=== PATIENT | male | born 1950 | race Caucasian/White ===

== ENCOUNTER → 2020-07-12 | Outpatient (CLI) | payer MEDICARE ==
[~2020-07-12] MED LIST: ASCO500T17 PO; ASPI-586 PO; ATOR40TA70 PO; ENAL20TA16 PO; MULT-178 PO
--- NOTE | 2020-07-12 09:58 | Diagnostic Imaging Report ---
PROCEDURE: MRI lumbar spine. TECHNIQUE: Multiplanar, multisequence MRI of the lumbar spine was performed without contrast. INDICATION: 1 week history of back pain with no known injury. FINDINGS: There is heterogeneity of the marrow signal intensity, suggestive of areas of fatty replacement of red marrow. No geographic marrow lesion or edema. No fracture. The lower thoracic cord, conus, and nerves of the cauda equina are unremarkable. There is no paravertebral mass, hemorrhage, or fluid collection. The kidneys are partly included in the [id number]. There is right renal atrophy as well as fluid spaces within the bilateral renal eliana and calyces which may be hydronephrosis or parapelvic cysts, correlate clinically. The visualized aorta is nonaneurysmal. T12-L1: This level and disc are normal. There is no stenosis. L1-L2: There is mild hypertrophic facet arthrosis, disc desiccation, stature loss, and mild circumferential bulge. The bulging is somewhat asymmetric, greater right than left, and there is a borderline mild degree of right foraminal narrowing. L2-L3: Posterior osteophyte/disc material in conjunction with thickened ligamenta flava and facet arthrosis result in a mild degree of canal stenosis. There is moderate right and mild left neuroforaminal stenosis. L3-L4: There is disc desiccation, bulge, and endplate osteophytes with mild degrees of bi-foraminal stenosis and borderline mild canal narrowing. L4-L5: There is thickened ligamenta flava and facet arthrosis, greater left. The disc bulge is asymmetric to the left with a moderate to severe magnitude of left foraminal stenosis and moderate right foraminal narrowing as well as mild to moderate canal stenosis. L5-S1: There is disc desiccation, stature loss, bulge, and endplate osteophytes. There is a moderate magnitude of bi-foraminal stenosis and mild canal narrowing. IMPRESSION: 1. Multifactorial degenerative changes result in multilevel canal and foraminal stenoses listed level by level above. 2. Normal alignment with no acute appearing abnormality. Some marrow heterogeneity is likely owing to some osteoporosis or osteopenia without evidence for acute or chronic fracture. 3. The partially visualized kidneys show right renal atrophy and findings indeterminate between renal parapelvic cysts versus hydronephrosis bilaterally. Dictated by: Dictated on workstation # [id number]
== END ==
LOC: RAD 08:00
PROVIDERS: ATTEND Nurse Practitioner
DX: M51.17 Intervertebral disc disorders with radiculopathy, lumbosacral region (principal); M25.78 Osteophyte, vertebrae; M48.07 Spinal stenosis, lumbosacral region; M47.816 Spondylosis without myelopathy or radiculopathy, lumbar region; N26.1 Atrophy of kidney (terminal)
CPT/HCPCS: 72148

== ENCOUNTER → 2020-07-14 | Outpatient (CLI) | payer MEDICARE ==
--- NOTE | 2020-07-14 11:32 | Diagnostic Imaging Report ---
PROCEDURE: MRI pelvis without contrast. TECHNIQUE: Multiplanar, multisequence MRI of the pelvis was performed without contrast. INDICATION: Right hip pain. COMPARISON: No prior MRI pelvis studies are available for comparison. FINDINGS: Abnormal marrow signal intensity is identified in the right iliac bone adjacent to the right sacroiliac joint. This is low signal intensity on T1-weighted images and increased signal on T2-weighted images suggestive of edema. No significant abnormal signal is identified on this sacral side of the joint, however. In addition, there is abnormal T2 signal identified in right-sided pelvic musculature, specifically the right gluteus minimus and gluteus medius musculature. In addition, the right piriformis muscle does appear to be enlarged compared to the left and demonstrates diffuse increased T2 signal. A discrete mass within the piriformis muscle is not identified, however it is enlarged and possibility of underlying intramuscular hematoma or other mass cannot be entirely excluded. No discrete fluid collection is identified. The marrow signal intensity of bilateral hips is normal. No fracture is detected. No hip joint effusion is seen. The bladder does appear to be thick-walled and trabeculated. IMPRESSION: Abnormal marrow signal involving the right iliac bone adjacent to the sacroiliac joint. There is also significant muscular edema involving the right gluteus minimus, gluteus medius and piriformis musculature. This could be on an infectious/inflammatory basis. There is some enlargement to the right piriformis musculature and the possibility of an intramuscular hematoma or mass cannot be entirely excluded. Postcontrast MRI imaging as well as in and out of phase MRI imaging would be recommended for further characterization. Dictated by: Dictated on workstation # [id number]
== END ==
LOC: RAD 08:00
PROVIDERS: ATTEND Nurse Practitioner
DX: M84.351A Stress fracture, right femur, initial encounter for fracture (principal); M62.89 Other specified disorders of muscle
CPT/HCPCS: 72195

== ENCOUNTER → 2020-07-19 | Outpatient (CLI) | payer MEDICARE ==
[2020-07-19 15:36] LABS: CREATININE SERUM 1.48 MG/DL (0.60-1.30)
== END ==
LOC: LAB 15:10
PROVIDERS: ATTEND Nurse Practitioner
DX: M79.18 Myalgia, other site (principal); R19.00 Intra-abdominal and pelvic swelling, mass and lump, unspecified site
CPT/HCPCS: 36415; 82565; 84520

== ENCOUNTER → 2020-07-21 | Outpatient (CLI) | payer MEDICARE ==
[~2020-07-21] MED LIST changes: +GADOBUTROL 7.5 MMOL/7.5 ML (GADAVIST) VIAL IV ONE
--- NOTE | 2020-07-21 10:16 | Diagnostic Imaging Report ---
PROCEDURE: MRI pelvis with and without contrast. TECHNIQUE: Multiplanar, multisequence MRI of the pelvis was performed with and without contrast. INDICATION: The previous MRI pelvis exam performed on 07/14/2020 noted abnormal marrow signal involving the right iliac bone adjacent to the sacral iliac joint. There is also significant muscular edema involving the right gluteus minimus and medius muscles as well as the piriformis muscle. On this study there is enhancement of the right iliac bone on the postcontrast series. There are also other areas of enhancement involving the right acetabulum and to a lesser extent the left iliac bone near the left sacral joint. There are areas of altered signal within the sacrum as well. These findings are suggestive of metastatic disease. Furthermore there is an enhancing mass with a necrotic center along the posterior aspect of the right iliac bone within the piriformis muscle. This mass measures approximately 29.1 x 46.7 x 24.7 mm in maximum AP transverse and longitudinal dimensions. There is also generalized enhancement of the musculature about the right hip and iliac bone but there is no other discrete enhancing lesion identified. These findings do suggest neoplastic disease. Furthermore as suggested on the plain film exam there is thickening of the bladder wall. The possibility that there is neoplastic involvement of bladder should certainly be considered. Cystoscopy would be recommended for further evaluation. IMPRESSION: There is enhancement of the right iliac bone and to a lesser degree the sacrum and the left iliac bone. There is also enhancing necrotic mass involving the piriform muscle. 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 The possibility that there is a neoplastic process involving the bladder should also certainly be considered. Recommendations as above. These results will be discussed with DEON Reyes. Dictated on workstation # [id number]
== END ==
LOC: RAD 08:00
PROVIDERS: ATTEND Nurse Practitioner
DX: R19.09 Other intra-abdominal and pelvic swelling, mass and lump (principal); M79.18 Myalgia, other site
CPT/HCPCS: 72197

== ENCOUNTER → 2020-09-08 | Outpatient (CLI) | payer MEDICARE ==
[~2020-09-08] MED LIST changes: -GADOBUTROL 7.5 MMOL/7.5 ML (GADAVIST) VIAL IV ONE
--- NOTE | 2020-09-08 11:59 | Diagnostic Imaging Report ---
EXAMINATION: Pelvis MRI from 09/08/2020. TECHNIQUE: Multiplanar, multisequence MRI of the pelvis was performed without contrast. INDICATION: History of recent abscess. Follow-up. COMPARISON: 07/21/2020. FINDINGS: The previously noted abnormal fluid collection just posterior to the right acetabulum has markedly improved with minimal residual edema seen within the adjacent soft tissues. No drainable amount of fluid seen at this time. However, there is diffuse abnormal signal intensity within the adjacent right ilium and portions of the right sacral ala. These findings are suspicious for osteomyelitis despite the lack of IV contrast. Correlate with symptoms. There is edema extending along the gluteal musculature, slightly improved from previous. Minimal fluid is seen deep to the right iliacus muscle which is improving. The urinary bladder wall is diffusely thickened and could be due to incomplete distention with cystitis not excluded. There are several somewhat prominent lymph nodes within the inguinal regions bilaterally, likely reactive. Hamstrings tendons and remaining visualized tendons appear to be intact. IMPRESSION: 1. Interval resolution or near-complete resolution of the previously noted abnormality, likely a resolving abscess. Some residual edema within the region is seen with a very tiny subcentimeter collection of fluid remaining. Continued follow-up to assure complete resolution recommended. 2. Findings within the right ilium and sacrum are suspicious for osteomyelitis in the setting of an adjacent infectious etiology. Other findings, as noted above. Dictated on workstation # [id number]
== END ==
LOC: RAD 08:00
PROVIDERS: ATTEND Internal Medicine Infectious Disease
DX: M86.9 Osteomyelitis, unspecified (principal); R19.00 Intra-abdominal and pelvic swelling, mass and lump, unspecified site
CPT/HCPCS: 72195

== ENCOUNTER → 2022-09-02 | Outpatient (CLI) | payer MEDICARE ==
[2022-09-02 10:07] VITALS: BP 139/93
--- NOTE | 2022-09-02 11:07 | Cardiology Stress Test Report ---
Stress Test Report Date of Procedure/Referring: Date of Procedure: Sep 02, 2022 PCP No,Local Physician Admitting Physician Admitting Physician: Attending Physician: Jose Leary MD Baseline Heart Rate: 55 Baseline Blood Pressure: Blood Pressure Systolic: 139 Blood Pressure Diastolic: 93 Baseline EKG: Baseline EKG: NSR Summary/Conclusion: Summary: In summary, the patient started exercising with a baseline heart rate, blood pressure and EKG mentioned above Patient was able to exercise for a total of 6.30minutes on [place] protocol, METs 7.9 Maximum heart rate 135 Maximum blood pressure 169/90 Stress EKG, Minimal nondiagnostic changes Recovery EKG , Return to baseline Conclusion: 1. Good exercise tolerance for a total of 6.30 minutes on [place]w protocol, 7.9 METs, achieving 90 percent of maximum expected heart rate 2. Minimal nondiagnostic EKG changes with exercise returned to baseline during recovery 3. No arrhythmia was noted JOSE LEARY MD Sep 02, 2022 11:07
== END ==
LOC: CARD 09:37
PROVIDERS: ATTEND Internal Medicine Cardiovascular Disease
DX: I35.1 Nonrheumatic aortic (valve) insufficiency (principal); I10 Essential (primary) hypertension
CPT/HCPCS: 93017; C8929; 93306

== ENCOUNTER → 2022-11-04 | Outpatient (CLI) | payer MEDICARE ==
--- NOTE | 2022-11-04 13:53 | Diagnostic Imaging Report ---
PROCEDURE: MRI left joint lower extremity without contrast. TECHNIQUE: Multiplanar, multisequence [id number] MRI of the left lower extremity was accomplished. INDICATION: Chronic left ankle pain. COMPARISON: None available. FINDINGS: Tendons: Achilles is intact. Peroneus longus and brevis tendons are intact with tenosynovitis present. Posterior tibialis, flexor digitorum longus, and flexor hallucis longus are intact. There is tenosynovitis in the posterior tibialis and flexor hallucis longus sheaths. Anterior tibialis, extensor hallucis longus, and extensor digitorum longus are normal. Ligaments: Anterior and posterior distal tibiofibular ligaments are intact. Anterior talofibular ligament is completely torn. Calcaneofibular and posterior talofibular ligaments are normal. Medial deltoid ligamentous complex is intact. Spring ligament is intact. 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 Subchondral bone marrow edema in the tibial plafond and lateral malleolus is likely degenerative hyperemia associated with advanced degenerative changes. No features of unstable osteochondral lesion in the talar dome. No stress fracture within the calcaneus or navicular. Soft Tissues: Small ankle joint effusion and/or synovitis is present. No features of sinus tarsi syndrome. No active plantar fasciitis, and no mass effect on the tarsal tunnel. IMPRESSION: 1. 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 This edema-like signal is most likely reactive hyperemia due to the advanced degenerative changes. 2. Multifocal tenosynovitis around the ankle. While this could be reactive in nature, inflammatory arthritis can also give this appearance. 3. 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 Dictated by: Dictated on workstation # [id number]
== END ==
LOC: RAD 10:15
PROVIDERS: ATTEND Orthopaedic Surgery
DX: M19.072 Primary osteoarthritis, left ankle and foot (principal); M65.872 Other synovitis and tenosynovitis, left ankle and foot; S93.492A Sprain of other ligament of left ankle, initial encounter; X58.XXXA Exposure to other specified factors, initial encounter
CPT/HCPCS: 73721